=== PATIENT | male | born 1965 | race African-American/Black ===

== ENCOUNTER 2022-12-14 13:17 | Inpatient (IN) | payer OTHER ==
[2022-12-14 17:21] VITALS: BMI 24.3
[2022-12-14] MEDS ORDERED: P-EPHED 60MG/TRIPROLIDI 2.5MG TABLET PO PRN (18:50)
[2022-12-14] MEDS ORDERED: MAG HYDROX/AL HYDROX/SIMETH 30 ML UNIT-DOSE CUP PO PRN (18:50)
[2022-12-14] MEDS ORDERED: BENZOCAINE/MENTHOL (CHLORASEPTIC ) LOZENGE MM PRN (18:50)
[2022-12-14] MEDS ORDERED: guaiFENesin 600 MG TABLET.ER (FP) PO PRN (18:50)
[2022-12-14] MEDS ORDERED: BENZONATATE 200 MG CAPSULE PO PRN (18:50)
[2022-12-14] MEDS ORDERED: IBUPROFEN 400 MG TABLET (FP) PO PRN (18:50)
[2022-12-14] MEDS ORDERED: MAGNESIUM HYDROX 2400MG/30ML ORAL SUSPENSION 30 ML CUP PO PRN (18:50)
[2022-12-14] MEDS ORDERED: BISMUTH SUBSALICYLATE 524 MG/30 ML PO PRN (18:50)
[2022-12-14] MEDS ORDERED: ONDANSETRON *ODT* 4 MG TABLET SL PRN (18:50)
[2022-12-14] MEDS ORDERED: DICYCLOMINE HCL 10 MG CAPSULE PO PRN (18:50)
[2022-12-14] MEDS ORDERED: POLYETHYLENE GLYCOL (HEALTHYLAX) 3350 17 GM PACKET PO PRN (18:50)
[2022-12-14] MEDS ORDERED: LOPERAMIDE HCL 2 MG CAPSULE PO PRN (18:50)
[2022-12-14] MEDS ORDERED: METOPROLOL TARTRATE 25 MG TABLET (FP) PO ONE (18:52)
[2022-12-14] MEDS ORDERED: METOPROLOL TARTRATE 25 MG TABLET (FP) ONE (19:22)
[2022-12-14] MEDS: amLODIPine BESYLATE 10 MG TABLET (FP) PO SCH (21:01)
[2022-12-14] MEDS: ASPIRIN 81 MG CHEWABLE TABLETS PO SCH (21:01)
[2022-12-14] MEDS: THIAMINE HCL 100 MG TABLET (FP) PO SCH (21:02)
[2022-12-14] MEDS: MELATONIN 5 MG TABLETS PO SCH (21:02)
[2022-12-15] MEDS ORDERED: chlordiazePOXIDE HCL 25 MG CAPSULE PO PRN (10:02)
[2022-12-15] MEDS: PRENATAL VITAMINS W/ FOLIC ACID TABLET (FP) PO SCH (10:20)
[2022-12-15] MEDS: amLODIPine BESYLATE 10 MG TABLET (FP) PO SCH (10:20)
[2022-12-15] MEDS: chlordiazePOXIDE HCL 25 MG CAPSULE PO SCH ×3 (10:20→22:07)
[2022-12-15] MEDS: ASPIRIN 81 MG CHEWABLE TABLETS PO SCH (10:20)
[2022-12-15] MEDS: IBUPROFEN 600 MG TABLET (FP) PO PRN (10:22)
[2022-12-15 11:34] LABS: HEMATOCRIT 42.3 % (35.4-49); HEMOGLOBIN 13.9 GM/dL (11.7-16.9); MCH 30.3 pg (25.7-33.7); MCHC 32.8 g/dl (32.0-35.9); MEAN CELL VOLUME 92.4 fl (80-96); MEAN PLT VOLUME 8.4 fl (7.5-11.1); PLATELET COUNT 215 10^3/uL (134-434); RBC 4.58 M/mm3 (4.00-5.60); RDW 15.6 % (11.9-15.9); WHITE BLOOD COUNT 3.8 K/mm3 (4.0-10.0)
[2022-12-15 11:35] LABS: POTASSIUM 3.6 mmol/L (3.5-5.1)
[2022-12-15 11:49] LABS: CALCIUM 9.8 mg/dL (8.5-10.1)
[2022-12-15 11:50] LABS: ALBUMIN 3.7 g/dl (3.4-5.0); BLOOD UREA NITROGEN 13.4 mg/dL (7-18)
[2022-12-15 11:53] LABS: CREATININE 0.8 mg/dL (0.55-1.3)
[2022-12-15 11:55] LABS: BILIRUBIN,TOTAL 3.2 mg/dL (0.2-1)
[2022-12-15] MEDS: MELATONIN 5 MG TABLETS PO SCH (22:07)
[2022-12-15] MEDS: ACETAMINOPHEN 325 MG TABLET (FP) PO PRN (22:07)
[2022-12-15] MEDS: THIAMINE HCL 100 MG TABLET (FP) PO SCH (22:07)
[2022-12-16] MEDS: chlordiazePOXIDE HCL 25 MG CAPSULE PO SCH ×4 (05:16→22:17)
[2022-12-16] MEDS: amLODIPine BESYLATE 10 MG TABLET (FP) PO SCH (10:22)
[2022-12-16] MEDS: hydrOXYzine PAMOATE 25 MG CAPSULE (FP) PO PRN (10:22)
[2022-12-16] MEDS: PRENATAL VITAMINS W/ FOLIC ACID TABLET (FP) PO SCH (10:22)
[2022-12-16] MEDS: IBUPROFEN 600 MG TABLET (FP) PO PRN ×2 (10:23→17:50)
[2022-12-16] MEDS: ASPIRIN 81 MG CHEWABLE TABLETS PO SCH (10:23)
[2022-12-16 11:17] LABS: BILIRUBIN,TOTAL 1.4 mg/dL (0.2-1)
[2022-12-16] MEDS: NICOTINE 21 MG/24 HOURS TOPICAL PATCH TD SCH (11:25)
[2022-12-16] MEDS: THIAMINE HCL 100 MG TABLET (FP) PO SCH (22:17)
[2022-12-16] MEDS: MELATONIN 5 MG TABLETS PO SCH (22:17)
[2022-12-17] MEDS: chlordiazePOXIDE HCL 25 MG CAPSULE PO SCH ×4 (05:21→22:43)
[2022-12-17] MEDS: amLODIPine BESYLATE 10 MG TABLET (FP) PO SCH (11:06)
[2022-12-17] MEDS: hydrOXYzine PAMOATE 25 MG CAPSULE (FP) PO PRN (11:06)
[2022-12-17] MEDS: ASPIRIN 81 MG CHEWABLE TABLETS PO SCH (11:07)
[2022-12-17] MEDS: PRENATAL VITAMINS W/ FOLIC ACID TABLET (FP) PO SCH (11:07)
[2022-12-17] MEDS: NICOTINE 21 MG/24 HOURS TOPICAL PATCH TD SCH (11:07)
[2022-12-17] MEDS: THIAMINE HCL 100 MG TABLET (FP) PO SCH (22:43)
[2022-12-17] MEDS: MELATONIN 5 MG TABLETS PO SCH (22:43)
[2022-12-18] MEDS ORDERED: chlordiazePOXIDE HCL 10 MG CAPSULE PO PRN
[2022-12-18] MEDS: chlordiazePOXIDE HCL 10 MG CAPSULE PO SCH ×4 (05:43→22:03)
[2022-12-18] MEDS: NICOTINE POLACRILEX 2 MG GUM BUC PRN (06:08)
[2022-12-18] MEDS: ASPIRIN 81 MG CHEWABLE TABLETS PO SCH (10:44)
[2022-12-18] MEDS: amLODIPine BESYLATE 10 MG TABLET (FP) PO SCH (10:44)
[2022-12-18] MEDS: hydrOXYzine PAMOATE 25 MG CAPSULE (FP) PO PRN (10:44)
[2022-12-18] MEDS: PRENATAL VITAMINS W/ FOLIC ACID TABLET (FP) PO SCH (10:44)
[2022-12-18] MEDS: NICOTINE 21 MG/24 HOURS TOPICAL PATCH TD SCH (10:45)
[2022-12-18] MEDS ORDERED: METOPROLOL TARTRATE 50 MG TABLET (FP) PO ONE (14:45)
[2022-12-18] MEDS: THIAMINE HCL 100 MG TABLET (FP) PO SCH (22:03)
[2022-12-18] MEDS: MELATONIN 5 MG TABLETS PO SCH (22:03)
[2022-12-18] MEDS: ACETAMINOPHEN 325 MG TABLET (FP) PO PRN (22:04)
[2022-12-19] MEDS: chlordiazePOXIDE HCL 10 MG CAPSULE PO SCH ×2 (05:40→18:14)
[2022-12-19] MEDS: amLODIPine BESYLATE 10 MG TABLET (FP) PO SCH (10:17)
[2022-12-19] MEDS: ASPIRIN 81 MG CHEWABLE TABLETS PO SCH (10:17)
[2022-12-19] MEDS: hydrOXYzine PAMOATE 25 MG CAPSULE (FP) PO PRN (10:17)
[2022-12-19] MEDS: PRENATAL VITAMINS W/ FOLIC ACID TABLET (FP) PO SCH (10:17)
[2022-12-19] MEDS: NICOTINE POLACRILEX 2 MG GUM BUC PRN ×2 (10:19→18:15)
[2022-12-19] MEDS: NICOTINE 21 MG/24 HOURS TOPICAL PATCH TD SCH (10:19)
[2022-12-19] MEDS: THIAMINE HCL 100 MG TABLET (FP) PO SCH (22:13)
[2022-12-19] MEDS: MELATONIN 5 MG TABLETS PO SCH (22:13)
[2022-12-19] MEDS: ACETAMINOPHEN 325 MG TABLET (FP) PO PRN (22:14)
[2022-12-20] MEDS ORDERED: chlordiazePOXIDE HCL 10 MG CAPSULE PO ONE (05:00)
[2022-12-20 09:08] VITALS: BP 135/88; PULSE 74; RESP 18; TEMP 98.1
[2022-12-20] MEDS: PRENATAL VITAMINS W/ FOLIC ACID TABLET (FP) PO SCH (10:19)
[2022-12-20] MEDS: NICOTINE 21 MG/24 HOURS TOPICAL PATCH TD SCH (10:19)
[2022-12-20] MEDS: ASPIRIN 81 MG CHEWABLE TABLETS PO SCH (10:20)
[2022-12-20] MEDS: amLODIPine BESYLATE 10 MG TABLET (FP) PO SCH (10:20)
[2022-12-20] MEDS: NICOTINE POLACRILEX 2 MG GUM BUC PRN (10:21)
== END 2022-12-20 12:56 | disposition home or self-care (01) | DRG 775 ==
LOC: YASAS 13:17 → Y6N 19:32
PROVIDERS: ADMIT Allergy & Immunology; ATTEND Surgery
PROC: HZ2ZZZZ Detoxification Services for Substance Abuse Treatment (ICD-10-PCS; principal; 2022-12-14)
DX: F10.230 Alcohol dependence with withdrawal, uncomplicated (principal); F17.210 Nicotine dependence, cigarettes, uncomplicated; I10 Essential (primary) hypertension; R00.0 Tachycardia, unspecified; M19.90 Unspecified osteoarthritis, unspecified site; Z59.00 Homelessness unspecified
CPT/HCPCS: 36415; 80053; 80305; 82247; 84450; 85027; 86780; 87635; 93005; 93010

== ENCOUNTER 2023-02-24 13:15 | Inpatient (IN) | payer OTHER ==
[2023-02-24 13:39] VITALS: BMI 25.5
[2023-02-24] MEDS ORDERED: BISMUTH SUBSALICYLATE 524 MG/30 ML PO PRN (18:21)
[2023-02-24] MEDS ORDERED: POLYETHYLENE GLYCOL (HEALTHYLAX) 3350 17 GM PACKET PO PRN (18:21)
[2023-02-24] MEDS ORDERED: MAGNESIUM HYDROX 2400MG/30ML ORAL SUSPENSION 30 ML CUP PO PRN (18:21)
[2023-02-24] MEDS ORDERED: MAG HYDROX/AL HYDROX/SIMETH 30 ML UNIT-DOSE CUP PO PRN (18:21)
[2023-02-24] MEDS ORDERED: IBUPROFEN 600 MG TABLET (FP) PO PRN (18:21)
[2023-02-24] MEDS ORDERED: ACETAMINOPHEN 325 MG TABLET (FP) PO PRN (18:21)
[2023-02-24] MEDS ORDERED: LOPERAMIDE HCL 2 MG CAPSULE PO PRN (18:21)
[2023-02-24] MEDS ORDERED: DICYCLOMINE HCL 10 MG CAPSULE PO PRN (18:21)
[2023-02-24] MEDS ORDERED: guaiFENesin 600 MG TABLET.ER (FP) PO PRN (18:21)
[2023-02-24] MEDS ORDERED: IBUPROFEN 400 MG TABLET (FP) PO PRN (18:21)
[2023-02-24] MEDS ORDERED: P-EPHED 60MG/TRIPROLIDI 2.5MG TABLET PO PRN (18:21)
[2023-02-24] MEDS ORDERED: BENZONATATE 200 MG CAPSULE PO PRN (18:21)
[2023-02-24] MEDS ORDERED: amLODIPine BESYLATE 5 MG TABLET (FP) ONE (18:46)
[2023-02-24] MEDS: amLODIPine BESYLATE 5 MG TABLET (FP) PO SCH (18:49)
[2023-02-24] MEDS: THIAMINE HCL 100 MG TABLET (FP) PO SCH (21:57)
[2023-02-24] MEDS: ONDANSETRON *ODT* 4 MG TABLET SL PRN (21:57)
[2023-02-24] MEDS: MELATONIN 5 MG TABLETS PO SCH (21:57)
[2023-02-24] MEDS: hydrOXYzine PAMOATE 25 MG CAPSULE (FP) PO PRN (21:57)
[2023-02-24] MEDS: METHOCARBAMOL 500 MG TABLET PO PRN (21:57)
[2023-02-25] MEDS: METHOCARBAMOL 500 MG TABLET PO PRN ×2 (04:59→17:53)
[2023-02-25] MEDS: hydrOXYzine PAMOATE 25 MG CAPSULE (FP) PO PRN ×3 (04:59→22:39)
[2023-02-25] MEDS: ASPIRIN 81 MG CHEWABLE TABLETS PO SCH (09:17)
[2023-02-25] MEDS: PRENATAL VITAMINS W/ FOLIC ACID TABLET (FP) PO SCH (09:17)
[2023-02-25] MEDS: amLODIPine BESYLATE 5 MG TABLET (FP) PO SCH (09:18)
[2023-02-25] MEDS: NICOTINE POLACRILEX 2 MG GUM BUC PRN (17:55)
[2023-02-25] MEDS ORDERED: LORazepam 1 MG TABLET PO PRN (19:55)
[2023-02-25] MEDS: MELATONIN 5 MG TABLETS PO SCH (22:39)
[2023-02-25] MEDS: THIAMINE HCL 100 MG TABLET (FP) PO SCH (22:39)
[2023-02-25] MEDS: LORazepam 2 MG TABLET PO SCH (22:39)
[2023-02-26] MEDS: LORazepam 2 MG TABLET PO SCH ×4 (05:36→22:50)
[2023-02-26] MEDS: METHOCARBAMOL 500 MG TABLET PO PRN (05:37)
[2023-02-26] MEDS: ONDANSETRON *ODT* 4 MG TABLET SL PRN (05:37)
[2023-02-26 09:39] LABS: HEMATOCRIT 42.9 % (35.4-49); HEMOGLOBIN 14.4 GM/dL (11.7-16.9); MCH 30.8 pg (25.7-33.7); MCHC 33.6 g/dl (32.0-35.9); MEAN CELL VOLUME 91.8 fl (80-96); MEAN PLT VOLUME 9.8 fl (7.5-11.1); PLATELET COUNT 172 10^3/uL (134-434); RBC 4.67 M/mm3 (4.00-5.60); RDW 13.8 % (11.9-15.9); WHITE BLOOD COUNT 3.7 K/mm3 (4.0-10.0)
[2023-02-26 09:52] LABS: ALBUMIN 3.8 g/dl (3.4-5.0); BLOOD UREA NITROGEN 8.3 mg/dL (7-18); CALCIUM 9.3 mg/dL (8.5-10.1)
[2023-02-26 09:55] LABS: CREATININE 0.9 mg/dL (0.55-1.3)
[2023-02-26 09:57] LABS: BILIRUBIN,TOTAL 1.9 mg/dL (0.2-1); TOT PROT 7.4 g/dl (6.4-8.2)
[2023-02-26] MEDS: ASPIRIN 81 MG CHEWABLE TABLETS PO SCH (10:17)
[2023-02-26] MEDS: amLODIPine BESYLATE 5 MG TABLET (FP) PO SCH (10:17)
[2023-02-26] MEDS: PRENATAL VITAMINS W/ FOLIC ACID TABLET (FP) PO SCH (10:17)
[2023-02-26] MEDS: hydrOXYzine PAMOATE 25 MG CAPSULE (FP) PO PRN (19:44)
[2023-02-26] MEDS ORDERED: cloNIDine HCL 0.1 MG TABLET PO ONE (22:07)
[2023-02-26] MEDS: THIAMINE HCL 100 MG TABLET (FP) PO SCH (22:50)
[2023-02-26] MEDS: MELATONIN 5 MG TABLETS PO SCH (22:55)
[2023-02-27] MEDS: LORazepam 1 MG TABLET PO SCH ×4 (05:53→22:22)
[2023-02-27] MEDS ORDERED: cloNIDine HCL 0.1 MG TABLET PO ONE ×3 (06:14→06:25)
[2023-02-27] MEDS: hydrOXYzine PAMOATE 25 MG CAPSULE (FP) PO PRN (06:30)
[2023-02-27] MEDS: ASPIRIN 81 MG CHEWABLE TABLETS PO SCH (10:50)
[2023-02-27] MEDS: amLODIPine BESYLATE 5 MG TABLET (FP) PO SCH (10:51)
[2023-02-27] MEDS: PRENATAL VITAMINS W/ FOLIC ACID TABLET (FP) PO SCH (10:51)
[2023-02-27] MEDS: NICOTINE POLACRILEX 2 MG GUM BUC PRN ×2 (11:03→17:14)
[2023-02-27] MEDS: MELATONIN 5 MG TABLETS PO SCH (22:22)
[2023-02-27] MEDS: THIAMINE HCL 100 MG TABLET (FP) PO SCH (22:22)
[2023-02-28] MEDS ORDERED: LORazepam 0.5 MG TABLET PO PRN
[2023-02-28] MEDS: LORazepam 0.5 MG TABLET PO SCH ×4 (05:39→22:06)
[2023-02-28] MEDS: NICOTINE POLACRILEX 2 MG GUM BUC PRN ×3 (05:40→22:10)
[2023-02-28] MEDS: amLODIPine BESYLATE 5 MG TABLET (FP) PO SCH (10:13)
[2023-02-28] MEDS: ASPIRIN 81 MG CHEWABLE TABLETS PO SCH (10:13)
[2023-02-28] MEDS: PRENATAL VITAMINS W/ FOLIC ACID TABLET (FP) PO SCH (10:13)
[2023-02-28] MEDS: hydrOXYzine PAMOATE 25 MG CAPSULE (FP) PO PRN (10:13)
[2023-02-28] MEDS: METHOCARBAMOL 500 MG TABLET PO PRN ×2 (10:15→22:06)
[2023-02-28] MEDS: BENZOCAINE/MENTHOL (CHLORASEPTIC ) LOZENGE MM PRN (10:16)
[2023-02-28 13:00] LABS: BILIRUBIN,TOTAL 0.7 mg/dL (0.2-1)
[2023-02-28] MEDS: THIAMINE HCL 100 MG TABLET (FP) PO SCH (22:06)
[2023-02-28] MEDS: MELATONIN 5 MG TABLETS PO SCH (22:06)
[2023-03-01] MEDS ORDERED: LORazepam 0.5 MG TABLET PO ONE (05:00)
[2023-03-01 09:02] VITALS: RESP 18
[2023-03-01] MEDS: PRENATAL VITAMINS W/ FOLIC ACID TABLET (FP) PO SCH (10:12)
[2023-03-01] MEDS: amLODIPine BESYLATE 5 MG TABLET (FP) PO SCH (10:13)
[2023-03-01] MEDS: METHOCARBAMOL 500 MG TABLET PO PRN (10:13)
[2023-03-01] MEDS: ASPIRIN 81 MG CHEWABLE TABLETS PO SCH (10:13)
[2023-03-01] MEDS: NICOTINE POLACRILEX 2 MG GUM BUC PRN (10:14)
[2023-03-01] MEDS: hydrOXYzine PAMOATE 25 MG CAPSULE (FP) PO PRN (10:14)
[2023-03-01] MEDS: BENZOCAINE/MENTHOL (CHLORASEPTIC ) LOZENGE MM PRN (10:15)
[2023-03-01 13:37] VITALS: BP 146/96; PULSE 111; TEMP 97.7
== END 2023-03-01 12:30 | disposition other institution (70) | DRG 775 ==
LOC: YASAS 13:15 → Y6N 18:30
PROVIDERS: ADMIT Allergy & Immunology; ATTEND Surgery
PROC: HZ2ZZZZ Detoxification Services for Substance Abuse Treatment (ICD-10-PCS; principal; 2023-02-24)
DX: F10.230 Alcohol dependence with withdrawal, uncomplicated (principal); F17.210 Nicotine dependence, cigarettes, uncomplicated; I10 Essential (primary) hypertension; M17.11 Unilateral primary osteoarthritis, right knee; M16.12 Unilateral primary osteoarthritis, left hip; R26.89 Other abnormalities of gait and mobility
CPT/HCPCS: 36415; 80053; 82247; 84075; 85027; 86780; 87635; Q0162

== ENCOUNTER 2023-03-01 12:54 | Inpatient (IN) | payer OTHER ==
[2023-03-01] MEDS ORDERED: BENZONATATE 200 MG CAPSULE PO PRN (16:15)
[2023-03-01] MEDS ORDERED: hydrOXYzine PAMOATE 25 MG CAPSULE (FP) PO PRN (16:15)
[2023-03-01] MEDS ORDERED: BENZOCAINE/MENTHOL (CHLORASEPTIC ) LOZENGE MM PRN (16:15)
[2023-03-01] MEDS ORDERED: POLYETHYLENE GLYCOL (HEALTHYLAX) 3350 17 GM PACKET PO PRN (16:15)
[2023-03-01] MEDS ORDERED: AMMONIUM LACTATE 12% LOTION 225 GM BOTTLE TP PRN (16:15)
[2023-03-01] MEDS ORDERED: LOPERAMIDE HCL 2 MG CAPSULE PO PRN (16:15)
[2023-03-01] MEDS ORDERED: guaiFENesin 600 MG TABLET.ER (FP) PO PRN (16:15)
[2023-03-01] MEDS ORDERED: BACLOFEN 10 MG TABLET (FP) PO PRN (16:15)
[2023-03-01] MEDS ORDERED: MAG HYDROX/AL HYDROX/SIMETH 30 ML UNIT-DOSE CUP PO PRN (16:15)
[2023-03-01] MEDS ORDERED: NALOXONE HCL 0.4 MG/ML VIAL IVPUSH PRN (16:15)
[2023-03-01] MEDS ORDERED: NALOXONE HCL (KLOXXADO) 8 MG SPRAY NS PRN (16:15)
[2023-03-01] MEDS ORDERED: MAGNESIUM HYDROX 2400MG/30ML ORAL SUSPENSION 30 ML CUP PO PRN (16:15)
[2023-03-01] MEDS ORDERED: COLLOIDAL OATMEAL 1 BAR EACH TP PRN (16:15)
[2023-03-01] MEDS ORDERED: ACETAMINOPHEN 325 MG TABLET (FP) PO PRN (16:15)
[2023-03-01] MEDS ORDERED: IBUPROFEN 400 MG TABLET (FP) PO PRN (16:15)
[2023-03-01] MEDS: MELATONIN 5 MG TABLETS PO SCH (21:15)
[2023-03-01] MEDS: THIAMINE HCL 100 MG TABLET (FP) PO SCH (21:15)
[2023-03-01] MEDS: NICOTINE POLACRILEX 4 MG GUM BUC PRN (21:16)
[2023-03-02] MEDS: PRENATAL VITAMINS W/ FOLIC ACID TABLET (FP) PO SCH (10:13)
[2023-03-02] MEDS: NICOTINE 14 MG/24 HOURS TOPICAL PATCH TD PRN (10:14)
[2023-03-02] MEDS: NICOTINE POLACRILEX 4 MG GUM BUC PRN ×2 (10:14→21:20)
[2023-03-02 11:29] LABS: HIV INTERPRETATION NEGATIVE (NEGATIVE)
[2023-03-02] MEDS ORDERED: FLU VACCINE (FLULAVAL) PF 60 MCG/0.5 ML SYRINGE 2023-2024 IM ONE (12:00)
[2023-03-02] MEDS: MELATONIN 5 MG TABLETS PO SCH (21:19)
[2023-03-02] MEDS: IBUPROFEN 600 MG TABLET (FP) PO PRN (21:19)
[2023-03-02] MEDS: THIAMINE HCL 100 MG TABLET (FP) PO SCH (21:19)
[2023-03-03] MEDS: NICOTINE 14 MG/24 HOURS TOPICAL PATCH TD PRN (09:59)
[2023-03-03] MEDS: PRENATAL VITAMINS W/ FOLIC ACID TABLET (FP) PO SCH (09:59)
[2023-03-03] MEDS: IBUPROFEN 600 MG TABLET (FP) PO PRN ×2 (10:00→21:06)
[2023-03-03] MEDS: NICOTINE POLACRILEX 4 MG GUM BUC PRN (10:02)
[2023-03-03] MEDS: LACTULOSE 20 GM/30 ML UDC (FOR ORAL USE ONLY) PO SCH ×2 (13:52→21:06)
[2023-03-03] MEDS: THIAMINE HCL 100 MG TABLET (FP) PO SCH (21:06)
[2023-03-03] MEDS: MELATONIN 5 MG TABLETS PO SCH (21:06)
[2023-03-04] MEDS: LACTULOSE 20 GM/30 ML UDC (FOR ORAL USE ONLY) PO SCH ×3 (07:57→21:08)
[2023-03-04] MEDS: PRENATAL VITAMINS W/ FOLIC ACID TABLET (FP) PO SCH (11:03)
[2023-03-04] MEDS: MELATONIN 5 MG TABLETS PO SCH (21:08)
[2023-03-04] MEDS: THIAMINE HCL 100 MG TABLET (FP) PO SCH (21:08)
[2023-03-04] MEDS: IBUPROFEN 600 MG TABLET (FP) PO PRN (21:09)
[2023-03-05] MEDS: LACTULOSE 20 GM/30 ML UDC (FOR ORAL USE ONLY) PO SCH ×3 (06:45→21:27)
[2023-03-05] MEDS: NICOTINE POLACRILEX 4 MG GUM BUC PRN ×2 (06:46→21:28)
[2023-03-05] MEDS: PRENATAL VITAMINS W/ FOLIC ACID TABLET (FP) PO SCH (10:26)
[2023-03-05] MEDS: NICOTINE 14 MG/24 HOURS TOPICAL PATCH TD PRN (10:30)
[2023-03-05] MEDS: THIAMINE HCL 100 MG TABLET (FP) PO SCH (21:27)
[2023-03-05] MEDS: MELATONIN 5 MG TABLETS PO SCH (21:27)
[2023-03-06] MEDS: LACTULOSE 20 GM/30 ML UDC (FOR ORAL USE ONLY) PO SCH ×3 (06:52→21:28)
[2023-03-06] MEDS: NICOTINE POLACRILEX 4 MG GUM BUC PRN (09:54)
[2023-03-06] MEDS: PRENATAL VITAMINS W/ FOLIC ACID TABLET (FP) PO SCH (09:54)
[2023-03-06] MEDS: NICOTINE 14 MG/24 HOURS TOPICAL PATCH TD PRN (09:54)
[2023-03-06] MEDS: amLODIPine BESYLATE 10 MG TABLET (FP) PO SCH (16:34)
[2023-03-06] MEDS: ASPIRIN 81 MG CHEWABLE TABLETS PO SCH (16:34)
[2023-03-06] MEDS: THIAMINE HCL 100 MG TABLET (FP) PO SCH (21:28)
[2023-03-06] MEDS: MELATONIN 5 MG TABLETS PO SCH (21:28)
[2023-03-07] MEDS: LACTULOSE 20 GM/30 ML UDC (FOR ORAL USE ONLY) PO SCH ×3 (06:19→21:27)
[2023-03-07] MEDS: PRENATAL VITAMINS W/ FOLIC ACID TABLET (FP) PO SCH (10:27)
[2023-03-07] MEDS: ASPIRIN 81 MG CHEWABLE TABLETS PO SCH (10:27)
[2023-03-07] MEDS: amLODIPine BESYLATE 10 MG TABLET (FP) PO SCH (10:28)
[2023-03-07] MEDS: THIAMINE HCL 100 MG TABLET (FP) PO SCH (21:27)
[2023-03-07] MEDS: MELATONIN 5 MG TABLETS PO SCH (21:27)
[2023-03-08] MEDS: LACTULOSE 20 GM/30 ML UDC (FOR ORAL USE ONLY) PO SCH ×3 (06:10→21:05)
[2023-03-08] MEDS: amLODIPine BESYLATE 10 MG TABLET (FP) PO SCH (09:44)
[2023-03-08] MEDS: ASPIRIN 81 MG CHEWABLE TABLETS PO SCH (09:44)
[2023-03-08] MEDS: PRENATAL VITAMINS W/ FOLIC ACID TABLET (FP) PO SCH (09:44)
[2023-03-08] MEDS: NICOTINE 14 MG/24 HOURS TOPICAL PATCH TD PRN (09:45)
[2023-03-08] MEDS: MELATONIN 5 MG TABLETS PO SCH (21:05)
[2023-03-08] MEDS: THIAMINE HCL 100 MG TABLET (FP) PO SCH (21:05)
[2023-03-09] MEDS: LACTULOSE 20 GM/30 ML UDC (FOR ORAL USE ONLY) PO SCH ×3 (06:01→21:25)
[2023-03-09] MEDS: amLODIPine BESYLATE 10 MG TABLET (FP) PO SCH (09:44)
[2023-03-09] MEDS: ASPIRIN 81 MG CHEWABLE TABLETS PO SCH (09:44)
[2023-03-09] MEDS: NICOTINE 14 MG/24 HOURS TOPICAL PATCH TD PRN (09:44)
[2023-03-09] MEDS: PRENATAL VITAMINS W/ FOLIC ACID TABLET (FP) PO SCH (09:44)
[2023-03-09] MEDS: NICOTINE POLACRILEX 4 MG GUM BUC PRN ×2 (09:45→21:25)
[2023-03-09] MEDS: THIAMINE HCL 100 MG TABLET (FP) PO SCH (21:25)
[2023-03-09] MEDS: RIFAXIMIN 550 MG TABLET PO SCH (21:25)
[2023-03-09] MEDS: MELATONIN 5 MG TABLETS PO SCH (21:25)
[2023-03-10] MEDS: LACTULOSE 20 GM/30 ML UDC (FOR ORAL USE ONLY) PO SCH ×3 (06:51→21:09)
[2023-03-10] MEDS: amLODIPine BESYLATE 10 MG TABLET (FP) PO SCH (09:45)
[2023-03-10] MEDS: RIFAXIMIN 550 MG TABLET PO SCH ×2 (09:45→21:09)
[2023-03-10] MEDS: PRENATAL VITAMINS W/ FOLIC ACID TABLET (FP) PO SCH (09:45)
[2023-03-10] MEDS: ASPIRIN 81 MG CHEWABLE TABLETS PO SCH (09:45)
[2023-03-10] MEDS: MELATONIN 5 MG TABLETS PO SCH (21:09)
[2023-03-10] MEDS: THIAMINE HCL 100 MG TABLET (FP) PO SCH (21:09)
[2023-03-10] MEDS: NICOTINE POLACRILEX 4 MG GUM BUC PRN (21:10)
[2023-03-11] MEDS: LACTULOSE 20 GM/30 ML UDC (FOR ORAL USE ONLY) PO SCH ×3 (06:01→21:50)
[2023-03-11] MEDS: ASPIRIN 81 MG CHEWABLE TABLETS PO SCH (10:36)
[2023-03-11] MEDS: PRENATAL VITAMINS W/ FOLIC ACID TABLET (FP) PO SCH (10:36)
[2023-03-11] MEDS: amLODIPine BESYLATE 10 MG TABLET (FP) PO SCH (10:36)
[2023-03-11] MEDS: RIFAXIMIN 550 MG TABLET PO SCH ×2 (11:12→21:50)
[2023-03-11] MEDS: MELATONIN 5 MG TABLETS PO SCH (21:50)
[2023-03-11] MEDS: THIAMINE HCL 100 MG TABLET (FP) PO SCH (21:50)
[2023-03-12] MEDS: LACTULOSE 20 GM/30 ML UDC (FOR ORAL USE ONLY) PO SCH ×3 (05:56→21:09)
[2023-03-12] MEDS: ASPIRIN 81 MG CHEWABLE TABLETS PO SCH (09:36)
[2023-03-12] MEDS: amLODIPine BESYLATE 10 MG TABLET (FP) PO SCH (09:36)
[2023-03-12] MEDS: PRENATAL VITAMINS W/ FOLIC ACID TABLET (FP) PO SCH (09:36)
[2023-03-12] MEDS: NICOTINE 14 MG/24 HOURS TOPICAL PATCH TD PRN (09:37)
[2023-03-12] MEDS: RIFAXIMIN 550 MG TABLET PO SCH ×2 (09:37→21:09)
[2023-03-12] MEDS: MELATONIN 5 MG TABLETS PO SCH (21:09)
[2023-03-12] MEDS: THIAMINE HCL 100 MG TABLET (FP) PO SCH (21:09)
[2023-03-12] MEDS: NICOTINE POLACRILEX 4 MG GUM BUC PRN (21:09)
[2023-03-13] MEDS: LACTULOSE 20 GM/30 ML UDC (FOR ORAL USE ONLY) PO SCH ×3 (06:03→21:09)
[2023-03-13] MEDS: ASPIRIN 81 MG CHEWABLE TABLETS PO SCH (10:37)
[2023-03-13] MEDS: PRENATAL VITAMINS W/ FOLIC ACID TABLET (FP) PO SCH (10:37)
[2023-03-13] MEDS: RIFAXIMIN 550 MG TABLET PO SCH ×2 (10:37→21:10)
[2023-03-13] MEDS: amLODIPine BESYLATE 10 MG TABLET (FP) PO SCH (10:37)
[2023-03-13] MEDS: MELATONIN 5 MG TABLETS PO SCH (21:10)
[2023-03-13] MEDS: THIAMINE HCL 100 MG TABLET (FP) PO SCH (21:10)
[2023-03-13] MEDS: NICOTINE POLACRILEX 4 MG GUM BUC PRN (21:11)
[2023-03-14] MEDS: LACTULOSE 20 GM/30 ML UDC (FOR ORAL USE ONLY) PO SCH ×3 (06:18→21:14)
[2023-03-14] MEDS: PRENATAL VITAMINS W/ FOLIC ACID TABLET (FP) PO SCH (09:35)
[2023-03-14] MEDS: ASPIRIN 81 MG CHEWABLE TABLETS PO SCH (09:35)
[2023-03-14] MEDS: RIFAXIMIN 550 MG TABLET PO SCH ×2 (09:35→21:14)
[2023-03-14] MEDS: amLODIPine BESYLATE 10 MG TABLET (FP) PO SCH (09:35)
[2023-03-14] MEDS: THIAMINE HCL 100 MG TABLET (FP) PO SCH (21:14)
[2023-03-14] MEDS: MELATONIN 5 MG TABLETS PO SCH (21:14)
[2023-03-15] MEDS: LACTULOSE 20 GM/30 ML UDC (FOR ORAL USE ONLY) PO SCH ×3 (06:00→21:03)
[2023-03-15 09:05] VITALS: RESP 18
[2023-03-15] MEDS: amLODIPine BESYLATE 10 MG TABLET (FP) PO SCH (09:58)
[2023-03-15] MEDS: PRENATAL VITAMINS W/ FOLIC ACID TABLET (FP) PO SCH (09:58)
[2023-03-15] MEDS: ASPIRIN 81 MG CHEWABLE TABLETS PO SCH (09:58)
[2023-03-15] MEDS: RIFAXIMIN 550 MG TABLET PO SCH ×2 (09:59→21:03)
[2023-03-15] MEDS: THIAMINE HCL 100 MG TABLET (FP) PO SCH (21:03)
[2023-03-15] MEDS: MELATONIN 5 MG TABLETS PO SCH (21:03)
[2023-03-15] MEDS: NICOTINE POLACRILEX 4 MG GUM BUC PRN (21:04)
[2023-03-16] MEDS: LACTULOSE 20 GM/30 ML UDC (FOR ORAL USE ONLY) PO SCH ×3 (06:26→21:40)
[2023-03-16] MEDS: RIFAXIMIN 550 MG TABLET PO SCH (10:11)
[2023-03-16] MEDS: ASPIRIN 81 MG CHEWABLE TABLETS PO SCH (10:11)
[2023-03-16] MEDS: amLODIPine BESYLATE 10 MG TABLET (FP) PO SCH (10:11)
[2023-03-16] MEDS: PRENATAL VITAMINS W/ FOLIC ACID TABLET (FP) PO SCH (10:11)
[2023-03-16] MEDS: NICOTINE POLACRILEX 4 MG GUM BUC PRN (10:12)
[2023-03-16] MEDS: MELATONIN 5 MG TABLETS PO SCH (21:40)
[2023-03-16] MEDS: THIAMINE HCL 100 MG TABLET (FP) PO SCH (21:40)
[2023-03-17] MEDS: LACTULOSE 20 GM/30 ML UDC (FOR ORAL USE ONLY) PO SCH ×3 (06:11→21:02)
[2023-03-17] MEDS: PRENATAL VITAMINS W/ FOLIC ACID TABLET (FP) PO SCH (09:46)
[2023-03-17] MEDS: amLODIPine BESYLATE 10 MG TABLET (FP) PO SCH (09:46)
[2023-03-17] MEDS: ASPIRIN 81 MG CHEWABLE TABLETS PO SCH (09:46)
[2023-03-17] MEDS: NICOTINE 14 MG/24 HOURS TOPICAL PATCH TD PRN (09:48)
[2023-03-17] MEDS: THIAMINE HCL 100 MG TABLET (FP) PO SCH (21:02)
[2023-03-17] MEDS: MELATONIN 5 MG TABLETS PO SCH (21:02)
[2023-03-18] MEDS: LACTULOSE 20 GM/30 ML UDC (FOR ORAL USE ONLY) PO SCH ×3 (06:16→21:21)
[2023-03-18] MEDS: amLODIPine BESYLATE 10 MG TABLET (FP) PO SCH (10:12)
[2023-03-18] MEDS: ASPIRIN 81 MG CHEWABLE TABLETS PO SCH (10:12)
[2023-03-18] MEDS: PRENATAL VITAMINS W/ FOLIC ACID TABLET (FP) PO SCH (10:12)
[2023-03-18] MEDS: MELATONIN 5 MG TABLETS PO SCH (21:21)
[2023-03-18] MEDS: THIAMINE HCL 100 MG TABLET (FP) PO SCH (21:21)
[2023-03-19] MEDS: LACTULOSE 20 GM/30 ML UDC (FOR ORAL USE ONLY) PO SCH ×3 (06:16→21:27)
[2023-03-19] MEDS: amLODIPine BESYLATE 10 MG TABLET (FP) PO SCH (09:36)
[2023-03-19] MEDS: PRENATAL VITAMINS W/ FOLIC ACID TABLET (FP) PO SCH (09:36)
[2023-03-19] MEDS: ASPIRIN 81 MG CHEWABLE TABLETS PO SCH (09:36)
[2023-03-19] MEDS: MELATONIN 5 MG TABLETS PO SCH (21:27)
[2023-03-19] MEDS: THIAMINE HCL 100 MG TABLET (FP) PO SCH (21:27)
[2023-03-19] MEDS: NICOTINE POLACRILEX 4 MG GUM BUC PRN (21:28)
[2023-03-20] MEDS: LACTULOSE 20 GM/30 ML UDC (FOR ORAL USE ONLY) PO SCH ×3 (06:01→21:34)
[2023-03-20] MEDS: PRENATAL VITAMINS W/ FOLIC ACID TABLET (FP) PO SCH (10:21)
[2023-03-20] MEDS: amLODIPine BESYLATE 10 MG TABLET (FP) PO SCH (10:22)
[2023-03-20] MEDS: ASPIRIN 81 MG CHEWABLE TABLETS PO SCH (10:22)
[2023-03-20] MEDS: MELATONIN 5 MG TABLETS PO SCH (21:34)
[2023-03-20] MEDS: THIAMINE HCL 100 MG TABLET (FP) PO SCH (21:34)
[2023-03-21] MEDS: LACTULOSE 20 GM/30 ML UDC (FOR ORAL USE ONLY) PO SCH ×3 (06:12→21:02)
[2023-03-21] MEDS: amLODIPine BESYLATE 10 MG TABLET (FP) PO SCH (09:49)
[2023-03-21] MEDS: ASPIRIN 81 MG CHEWABLE TABLETS PO SCH (09:49)
[2023-03-21] MEDS: PRENATAL VITAMINS W/ FOLIC ACID TABLET (FP) PO SCH (09:49)
[2023-03-21] MEDS: THIAMINE HCL 100 MG TABLET (FP) PO SCH (21:02)
[2023-03-21] MEDS: MELATONIN 5 MG TABLETS PO SCH (21:02)
[2023-03-22] MEDS: LACTULOSE 20 GM/30 ML UDC (FOR ORAL USE ONLY) PO SCH (06:30)
[2023-03-22 06:49] VITALS: TEMP 97.8
[2023-03-22 08:54] VITALS: BP 125/77; PULSE 89
[2023-03-22] MEDS: amLODIPine BESYLATE 10 MG TABLET (FP) PO SCH (09:47)
[2023-03-22] MEDS: PRENATAL VITAMINS W/ FOLIC ACID TABLET (FP) PO SCH (09:47)
[2023-03-22] MEDS: ASPIRIN 81 MG CHEWABLE TABLETS PO SCH (09:47)
== END 2023-03-22 09:50 | disposition home or self-care (01) | DRG 772 ==
LOC: YASAS 12:54 → Y3W 12:55
PROVIDERS: ADMIT Allergy & Immunology; ATTEND Psychiatry & Neurology Pain Medicine
PROC: HZ42ZZZ Group Counseling for Substance Abuse Treatment, Cognitive-Behavioral (ICD-10-PCS; principal; 2023-03-01)
DX: F10.20 Alcohol dependence, uncomplicated (principal); F17.210 Nicotine dependence, cigarettes, uncomplicated; E72.20 Disorder of urea cycle metabolism, unspecified; I10 Essential (primary) hypertension; M17.11 Unilateral primary osteoarthritis, right knee; M16.12 Unilateral primary osteoarthritis, left hip; Z59.00 Homelessness unspecified
CPT/HCPCS: 36415; 82140; 86803; 87389; 90686; G0008

== ENCOUNTER 2024-01-12 16:56 | Inpatient (IN) | payer OTHER ==
[2024-01-12 17:34] VITALS: BMI 26.8
[2024-01-12] MEDS ORDERED: chlordiazePOXIDE HCL 25 MG CAPSULE PO PRN (19:05)
[2024-01-12] MEDS ORDERED: LOPERAMIDE HCL 2 MG CAPSULE PO PRN (19:12)
[2024-01-12] MEDS ORDERED: guaiFENesin 600 MG TABLET.ER (FP) PO PRN (19:12)
[2024-01-12] MEDS ORDERED: BISMUTH SUBSALICYLATE 524 MG/30 ML PO PRN (19:12)
[2024-01-12] MEDS ORDERED: ONDANSETRON *ODT* 4 MG TABLET SL PRN (19:12)
[2024-01-12] MEDS ORDERED: BENZOCAINE/MENTHOL (CHLORASEPTIC ) LOZENGE MM PRN (19:12)
[2024-01-12] MEDS ORDERED: MAG HYDROX/AL HYDROX/SIMETH 30 ML UNIT-DOSE CUP PO PRN (19:12)
[2024-01-12] MEDS ORDERED: BENZONATATE 200 MG CAPSULE PO PRN (19:12)
[2024-01-12] MEDS ORDERED: ACETAMINOPHEN 325 MG TABLET (FP) PO PRN (19:12)
[2024-01-12] MEDS ORDERED: POLYETHYLENE GLYCOL (HEALTHYLAX) 3350 17 GM PACKET PO PRN (19:12)
[2024-01-12] MEDS ORDERED: DICYCLOMINE HCL 10 MG CAPSULE PO PRN (19:12)
[2024-01-12] MEDS ORDERED: MAGNESIUM HYDROX 2400MG/30ML ORAL SUSPENSION 30 ML CUP PO PRN (19:12)
[2024-01-12] MEDS ORDERED: IBUPROFEN 400 MG TABLET (FP) PO PRN (19:12)
[2024-01-12] MEDS ORDERED: ASPIRIN 81 MG CHEWABLE TABLETS ONE (20:47)
[2024-01-12] MEDS: ASPIRIN 81 MG CHEWABLE TABLETS PO SCH (21:06)
[2024-01-12] MEDS: IBUPROFEN 600 MG TABLET (FP) PO PRN (21:37)
[2024-01-12] MEDS: METHOCARBAMOL 500 MG TABLET PO PRN (21:37)
[2024-01-12] MEDS: chlordiazePOXIDE HCL 25 MG CAPSULE PO SCH (22:25)
[2024-01-12] MEDS: THIAMINE 100 MG TABLET PO SCH (22:25)
[2024-01-12] MEDS: MELATONIN 5 MG TABLETS PO PRN (22:26)
[2024-01-13] MEDS: chlordiazePOXIDE HCL 25 MG CAPSULE PO SCH (05:18)
[2024-01-13] MEDS: PRENATAL VITAMINS W/ FOLIC ACID TABLET (FP) PO SCH (10:09)
[2024-01-13] MEDS: NICOTINE POLACRILEX 2 MG GUM BUC PRN (10:10)
[2024-01-13] MEDS: amLODIPine BESYLATE 10 MG TABLET (FP) PO SCH (10:10)
[2024-01-13] MEDS: NICOTINE 14 MG/24 HOURS TOPICAL PATCH TD SCH (13:21)
[2024-01-13] MEDS ORDERED: NICOTINE 21 MG/24 HOURS TOPICAL PATCH TD SCH (13:23)
[2024-01-13] MEDS: NICOTINE 21 MG/24 HOURS TOPICAL PATCH TD SCH (13:54)
[2024-01-14] MEDS: chlordiazePOXIDE HCL 10 MG CAPSULE PO SCH (05:16)
[2024-01-14 09:31] LABS: HEMOGLOBIN 14.1 GM/dL (11.7-16.9); MCH 30.3 pg (25.7-33.7); MCHC 33.6 g/dl (32.0-35.9); MEAN PLT VOLUME 9.2 fl (7.5-11.1); PLATELET COUNT 211 10^3/uL (134-434); RBC 4.67 M/mm3 (4.00-5.60); RDW 14.1 % (11.9-15.9); WHITE BLOOD COUNT 4.3 K/mm3 (4.0-10.0)
[2024-01-14] MEDS: NICOTINE POLACRILEX 2 MG LOZENGE BC PRN (20:32)
[2024-01-15] MEDS: chlordiazePOXIDE HCL 10 MG CAPSULE PO SCH (05:30)
[2024-01-15] MEDS: METOPROLOL TARTRATE 25 MG TABLET (FP) PO ONE (22:09)
[2024-01-15] MEDS: chlordiazePOXIDE HCL 10 MG CAPSULE PO PRN (22:11)
[2024-01-16] MEDS: chlordiazePOXIDE HCL 10 MG CAPSULE PO ONE (05:17)
[2024-01-16 11:56] LABS: CALCIUM 9.5 mg/dL (8.5-10.1)
[2024-01-16 11:57] LABS: ALBUMIN 3.8 g/dl (3.4-5.0)
[2024-01-16 11:58] LABS: BLOOD UREA NITROGEN 15.3 mg/dL (7-18)
[2024-01-16 12:00] LABS: CREATININE 0.8 mg/dL (0.55-1.3)
[2024-01-16 12:01] LABS: BILIRUBIN,TOTAL 1.1 mg/dL (0.2-1); TOT PROT 7.1 g/dl (6.4-8.2)
[2024-01-16 13:09] VITALS: BP 138/83; PULSE 92; RESP 19; TEMP 97.8
== END 2024-01-16 13:32 | disposition other institution (70) | DRG 775 ==
LOC: YASAS 16:56 → Y3N 21:06
PROVIDERS: ADMIT Allergy & Immunology; ATTEND Surgery
PROC: HZ2ZZZZ Detoxification Services for Substance Abuse Treatment (ICD-10-PCS; principal; 2024-01-12)
DX: F10.230 Alcohol dependence with withdrawal, uncomplicated (principal); F17.210 Nicotine dependence, cigarettes, uncomplicated; I10 Essential (primary) hypertension; M19.90 Unspecified osteoarthritis, unspecified site; Z99.89 Dependence on other enabling machines and devices
CPT/HCPCS: 36415; 80053; 80305; 80307; 85027; 86780; 87811

== ENCOUNTER 2024-01-16 13:46 | Inpatient (IN) | payer OTHER ==
[2024-01-16] MEDS ORDERED: BACITRACIN 0.9 GM PACKET ONE (15:08)
[2024-01-16] MEDS ORDERED: MAG HYDROX/AL HYDROX/SIMETH 30 ML UNIT-DOSE CUP PO PRN (15:16)
[2024-01-16] MEDS ORDERED: POLYETHYLENE GLYCOL (HEALTHYLAX) 3350 17 GM PACKET PO PRN (15:16)
[2024-01-16] MEDS ORDERED: NALOXONE HCL 0.4 MG/ML VIAL IVPUSH PRN (15:16)
[2024-01-16] MEDS ORDERED: BENZOCAINE/MENTHOL (CHLORASEPTIC ) LOZENGE MM PRN (15:16)
[2024-01-16] MEDS ORDERED: NALOXONE (NARCAN) HCL 4 MG/0.1 ML SPRAY NS PRN (15:16)
[2024-01-16] MEDS ORDERED: LOPERAMIDE HCL 2 MG CAPSULE PO PRN (15:16)
[2024-01-16] MEDS ORDERED: MAGNESIUM HYDROX 2400MG/30ML ORAL SUSPENSION 30 ML CUP PO PRN (15:16)
[2024-01-16] MEDS ORDERED: IBUPROFEN 400 MG TABLET (FP) PO PRN (15:16)
[2024-01-16] MEDS ORDERED: guaiFENesin 600 MG TABLET.ER (FP) PO PRN (15:16)
[2024-01-16] MEDS ORDERED: IBUPROFEN 600 MG TABLET (FP) PO PRN (15:16)
[2024-01-16] MEDS ORDERED: BENZONATATE 200 MG CAPSULE PO PRN (15:16)
[2024-01-16] MEDS: BACITRACIN 0.9 GM PACKET TP SCH (15:40)
[2024-01-16] MEDS: THIAMINE 100 MG TABLET PO SCH (21:23)
[2024-01-16] MEDS: MELATONIN 5 MG TABLETS PO SCH (21:23)
[2024-01-16] MEDS: hydrOXYzine PAMOATE 25 MG CAPSULE (FP) PO PRN (21:24)
[2024-01-17] MEDS: amLODIPine BESYLATE 10 MG TABLET (FP) PO SCH (11:33)
[2024-01-17] MEDS: PRENATAL VITAMINS W/ FOLIC ACID TABLET (FP) PO SCH (11:33)
[2024-01-17] MEDS: ASPIRIN 81 MG CHEWABLE TABLETS PO SCH (11:33)
[2024-01-17] MEDS: NICOTINE POLACRILEX 4 MG GUM BUC PRN (11:35)
[2024-01-17] MEDS: METHOCARBAMOL 500 MG TABLET PO PRN (21:42)
[2024-01-19] MEDS: ACETAMINOPHEN 325 MG TABLET (FP) PO PRN (21:32)
[2024-01-20] MEDS: NICOTINE POLACRILEX 4 MG LOZENGE BC PRN (10:20)
[2024-01-21] MEDS: NICOTINE 14 MG/24 HOURS TOPICAL PATCH TD PRN (10:19)
[2024-01-24] MEDS: GABAPENTIN 100 MG CAPSULE PO SCH (13:00)
[2024-01-26] MEDS ORDERED: TUBERCULIN PPD 5 TU/0.1ML VIAL ID ONE (13:44)
[2024-01-27] MEDS: GABAPENTIN 100 MG CAPSULE PO SCH (21:48)
[2024-01-30] MEDS: GABAPENTIN 300 MG CAPSULE PO SCH (21:42)
[2024-02-06] MEDS: LACTULOSE 20 GM/30 ML UDC (FOR ORAL USE ONLY) PO PRN (07:10)
[2024-02-06] MEDS: GABAPENTIN 400 MG CAPSULE PO SCH (13:55)
[2024-02-06] MEDS: LACTULOSE 20 GM/30 ML UDC (FOR ORAL USE ONLY) PO SCH (13:55)
[2024-02-11 07:04] VITALS: RESP 18
[2024-02-13 06:56] VITALS: BP 126/84; PULSE 75; TEMP 97.4
== END 2024-02-13 10:30 | disposition home or self-care (01) | DRG 772 ==
LOC: YASAS 13:46 → Y5N 13:49
PROVIDERS: ADMIT Allergy & Immunology; ATTEND Psychiatry & Neurology Pain Medicine
PROC: HZ42ZZZ Group Counseling for Substance Abuse Treatment, Cognitive-Behavioral (ICD-10-PCS; principal; 2024-01-16)
DX: F10.20 Alcohol dependence, uncomplicated (principal); F17.210 Nicotine dependence, cigarettes, uncomplicated; E72.20 Disorder of urea cycle metabolism, unspecified; I10 Essential (primary) hypertension; M17.11 Unilateral primary osteoarthritis, right knee; M16.12 Unilateral primary osteoarthritis, left hip; Z59.02 Unsheltered homelessness
CPT/HCPCS: 82140